=== PATIENT | male | born 1980 | race Caucasian/White ===

== ENCOUNTER 2020-10-07 03:57 | Emergency (ER) | payer OTHER | END 2020-10-07 07:35 | disposition home or self-care (01) | LOC: FER 03:57 | DX: S33.6XXA Sprain of sacroiliac joint, initial encounter (principal); F17.200 Nicotine dependence, unspecified, uncomplicated; X58.XXXA Exposure to other specified factors, initial encounter | CPT/HCPCS: 99283; J1885 ==